=== PATIENT | male | born 1975 | race Asian ===

== ENCOUNTER 2018-12-11 19:40 | Emergency (ER) | payer OTHER ==
[~2018-12-11] VITALS: Ht 180.3 cm; Wt 95.0 kg
[2018-12-11] MEDS ORDERED: ASPIRIN 81 MG TABLET CHEW PO ONE (20:00)
--- NOTE | 2018-12-11 20:10 | NUR ---
PT AMB W/ STEADY GAIT TO ROOM AT THIS TIME. PT PRESENTS TO ED C/O HEAD "FEELING REALLY HEAVY" YESTERDAY AND SINCE RESOLVED. STATES ACCOMPANIED DIZZINESS AT THAT TIME. STATES WENT TO URGENT CARE AND HAD AN "ABNORMAL EKG". STATED R VENTRICULAR HYPERTROPHY. NO ASSOCIATED CHRONIC HTN. STATES CURRENTLY HAVING CHEST TIGHTNESS/DISCOMFORT ON L AND RIGHT. NO OTHER ASSOCIATED SYMPTOMS AT THIS TIME. ALL MONITORING APPLIED. VSS. CALL LIGHT WITHIN REACH. LAB AT BEDSIDE TO DRAW BLOOD.
[2018-12-11 20:14] LABS: BASOPHILS # (AUTO) 0.03 x10^3/uL (0-0.1); BASOPHILS % (AUTO) 1 % (0-1); EOSINOPHILS # (AUTO) 0.42 x10^3/uL (0-0.4); EOSINOPHILS % (AUTO) 6 % (1-7); LYMPHOCYTES # (AUTO) 2.44 x10^3/uL (1-3.4); LYMPHOCYTES % (AUTO) 33 % (22-44); MD NO; MEAN CORPUSCULAR HEMOGLOBIN 28.9 pg (27.5-34.5); MEAN CORPUSCULAR HGB CONC 34.4 g/dL (33.2-36.2); MEAN PLATELET VOLUME 8.3 fL (7.4-10.4); MONOCYTES # (AUTO) 0.45 x10^3/uL (0.2-0.8); MONOCYTES % (AUTO) 6 % (2-9); NEUTROPHILS # (AUTO) 3.98 x10^3/uL (1.8-6.8); NEUTROPHILS % (AUTO) 54 % (42-75); PLATELET COUNT 272 x10^3/uL (130-400); RED BLOOD COUNT 5.23 x10^6/uL (4.38-5.82); RED CELL DISTRIBUTION WIDTH 12.6 % (9.4-14.8)
[2018-12-11] MEDS ORDERED: ASPIRIN 81 MG TABLET CHEW ONE (20:16)
[2018-12-11 20:26] LABS: ALBUMIN 4.1 g/dL (3.4-5.0); ANION GAP 4 mmol/L (5-15); CALCIUM 8.2 mg/dL (8.5-10.1); CHLORIDE 111 mmol/L (98-107); CREATININE 1.06 mg/dL (0.7-1.3)
[2018-12-11 20:30] LABS: TROPONIN I < 0.015 ng/mL (0.000-0.045)
--- NOTE | 2018-12-11 20:56 | NUR ---
ALL RESULTS BACK. PT UP FOR RECHECK.
[2018-12-11 22:12] VITALS: BP 128/80
--- NOTE | 2018-12-11 22:12 | NUR ---
BOTH EARS IRRIGATED AT THIS TIME AND SIZABLE CHUNKS OF EAR WAX NOTED. PT TBDC.
== END 2018-12-11 22:21 | disposition home or self-care (01) ==
LOC: ED 20:59
DX: R07.89 Other chest pain (principal); H61.21 Impacted cerumen, right ear; R42 Dizziness and giddiness; F17.210 Nicotine dependence, cigarettes, uncomplicated; R94.31 Abnormal electrocardiogram [ECG] [EKG]; R11.0 Nausea; R61 Generalized hyperhidrosis
CPT/HCPCS: 36415; 71046; 80048; 82040; 84484; 85025; 93005; 99284